=== PATIENT | female | born 1975 | race Caucasian/White ===

== ENCOUNTER 2018-04-20 08:35 | Emergency (ER) | payer OTHER ==
[2018-04-20 08:48] VITALS: BP 160/82; PULSE 119; TEMP 100.2; BMI 22.6
[2018-04-20] MEDS ORDERED: IBUPROFEN 400 MG TABLET (FP) PO ONE ×2 (09:10→09:17)
--- NOTE | 2018-04-20 09:12 | PDOC ---
History of Present Illness - General Chief Complaint: Cold Symptoms Stated Complaint: Cold Symptoms Time Seen by Provider: 04/20/18 08:57 History Source: Patient Exam Limitations: No Limitations - History of Present Illness Initial Comments: 04/20/18 09:47 Came to emergency department for evaluation of worsened cough, fevers, headache , body aches can Tylenol but seems to progressively worse Timing/Duration: reports: just prior to arrival, getting worse Severity: reports: moderate Associated Symptoms: reports: cough, dizziness, earache, fever/chills, headache , muscle aches, nasal congestion Past History - Travel Traveled outside of the country in the last 30 days: No Close contact w/someone who was outside of country & ill: No - Past Medical History Allergies/Adverse Reactions: Allergies Allergy/AdvReac Type Severity Reaction Status Date / Time No Known Allergies Allergy Verified 04/20/18 08:40 Home Medications: Ambulatory Orders Oseltamivir Phosphate [Tamiflu -] 75 mg PO BID #10 capsule 04/20/18 COPD: No - Reproductive History (#): 3 Para: 2 - Immunization History Immunization Up to Date: Yes - Suicide/Smoking/Psychosocial Hx Smoking Status: No Smoking History: Never smoked Have you smoked in the past 12 months: No Number of Cigarettes Smoked Daily: 0 Hx Alcohol Use: No Drug/Substance Use Hx: No Substance Use Type: None Review of Systems - Review of Systems Able to Perform ROS?: Yes Is the patient limited Cook Islander proficient: Yes Constitutional: Yes: Symptoms Reported, See HPI, Chills, Fever, Loss of Appetite , Malaise HEENTM: Yes: Symptoms Reported Respiratory: Yes: Symptoms reported, See HPI, Cough (non productive ), Wheezing Integumentary: Yes: Symptoms Reported, See HPI All Other Systems: Reviewed and Negative *Physical Exam - Vital Signs Last Vital Signs Temp Pulse Resp BP Pulse Ox 100.2 F H 119 H 16 160/82 98 04/20/18 08:40 04/20/18 08:40 04/20/18 08:40 04/20/18 08:40 04/20/18 08:40 - Physical Exam Comments: 04/20/18 09:16 GENERAL: [The child is awake, alert, and appropriately interactive.] EYES: [The pupils are equal, round, and reactive to light, with clear, conjunctiva.but glassy] NOSE: [The nose with clear drainage EARS: [The ear canals and tympanic membranes are congested but landmarks easily visualed ] THROAT: [The oropharynx is clear with erythema, no exudates. The mucous membranes are moist.] NECK: [The neck is supple with mildly tender adenopathy, no menigemous] CHEST: [The lungs are coarse but clear without crackles, or wheezes.] HEART: [Heart is regular rhythm, with normal S1 and S2, no murmurs.] ABDOMEN: [The abdomen is soft and nontender with normal bowel sounds. There is no organomegaly and no mass. There is no guarding or rebound.] EXTREMITIES: [Extremities are normal.] NEURO: [Behavior is normal for age.cranky but easily,m Tone is normal.] SKIN: [Skin is unremarkable without rash or swelling. There is no bruising, and there are no other signs of injury.] Moderate Sedation - Procedure Monitoring Vital Signs: Procedure Monitoring Vital Signs Temperature 100.2 F H 04/20/18 08:40 Pulse Rate 119 H 04/20/18 08:40 Respiratory Rate 16 04/20/18 08:40 Blood Pressure 160/82 04/20/18 08:40 O2 Sat by Pulse Oximetry (%) 98 04/20/18 08:40 Progress Note - Progress Note Progress Note: clinical evidence of influenza *DC/Admit/Observation/Transfer Diagnosis at time of Disposition: Influenzal acute upper respiratory infection - Discharge Dispostion Disposition: HOME Condition at time of disposition: Stable Decision to Admit order: No - Prescriptions Prescriptions: Oseltamivir Phosphate [Tamiflu -] 75 mg PO BID #10 capsule - Referrals Referrals: Oly Driscoll [Primary Care Provider] - - Patient Instructions Printed Discharge Instructions: DI for Viral Upper Respiratory Infection -- Adult Additional Instructions: Rest, drink lots of fluids: Teas, water, soups, Pedialyte Saltwater gargles Steamy showers/seem to face break up mucus Old-fashioned treatments help! Avoid contact with others until fevers and cough resolved as this is very contagious Lots of handwashing and good hygiene Continue [id number] medications for symptomatic relief Tylenol or Motrin for fever and pain Take all of Tamiflu as directed: 1 tab every 12 hours for 5 days Followup with private physician in one to 2 days as needed or if worsening Return to emergency department for worsened symptoms, fevers, dehydration Influenza takes between 5 and 7 days for resolution To not participate in any activity, work, or school until fevers and cough are gone for at least one day - Post Discharge Activity Forms/Work/School Notes: Back to Work
== END 2018-04-20 09:20 | disposition home or self-care (01) ==
LOC: JERFT 08:35
DX: J11.1 Influenza due to unidentified influenza virus with other respiratory manifestations (principal)
CPT/HCPCS: 99281-25

== ENCOUNTER 2018-06-18 17:24 | Emergency (ER) | payer OTHER | END 2018-06-18 23:17 | disposition left against medical advice (07) | LOC: JER 17:24 ==

== ENCOUNTER 2018-06-24 06:38 | Day surgery (SDC) | payer OTHER ==
[2018-06-17 17:42] VITALS: BMI 28.3
[2018-06-24] MEDS ORDERED: ePHEDrine SULFATE 50 MG/1 ML AMPULE ONE (07:05)
[2018-06-24] MEDS ORDERED: MIDAZOLAM HCL 2 MG/2 ML SINGLE DOSE VIAL ONE (07:06)
[2018-06-24] MEDS ORDERED: PROPOFOL 20 ML ONE ×4 (07:06)
[2018-06-24] MEDS ORDERED: SUCCINYLCHOLINE CHLORIDE 200 MG/10 ML VIAL ONE (07:06)
[2018-06-24] MEDS ORDERED: LIDOCAINE HCL 1% PRESERVATIVE FREE - 30ML VIAL ONE (07:17)
[2018-06-24] MEDS ORDERED: DESFLURANE GAS 240 ML BOTTLE IH ONE (07:23)
[2018-06-24] MEDS ORDERED: BUPIVACAINE HCL 0.25% 125 MG/50 ML VIAL ONE (07:32)
[2018-06-24] MEDS ORDERED: ceFAZolin SODIUM 1 GM VIAL ONE (08:20)
[2018-06-24] MEDS ORDERED: KETOROLAC TROMETHAMINE 30 MG/1 ML VIAL ONE (08:20)
[2018-06-24] MEDS ORDERED: DEXAMETHASONE SOD PHOSPHATE 4 MG/1 ML VIAL ONE (08:20)
[2018-06-24] MEDS ORDERED: ONDANSETRON 4 MG/2 ML VIAL ONE (08:20)
[2018-06-24] MEDS ORDERED: BUPIVACAINE HCL/PF 0.25% (2.5MG/ML) 10 ML VIAL IJ ONE (08:59)
--- NOTE | 2018-06-24 09:11 | OPR ---
DATE OF SURGERY: 06/24/18 PROCEDURE: Right open carpal tunnel release. PREOPERATIVE DIAGNOSIS: Right carpal tunnel syndrome. POSTOPERATIVE DIAGNOSIS: Right carpal tunnel syndrome. SURGEON: Heladio Shetty DO FUR PULLER: Samuel Liang DO ANESTHESIA: General IMPLANTS: None. SPECIMEN: None TOURNIQUET TIME: 11 minutes EBL: 1 ml COMPLICATIONS: None INDICATIONS: The patient is a 42 year old female with severe right carpal tunnel syndrome with worsening symptoms, despite conservative treatment. She wished to proceed with the open operative release. We discussed the risks and benefits of the procedure. The risks included but were not limited to infection, wound healing problems, possibility of recurrence, intractable pain, scarring, and further surgery for seen and unforeseen complications and recurrence. Ms Charan Martínez gave written consent to proceed. I marked the correct side preoperatively. SURGEONS NARRATIVE: We brought the patient to the operating room and placed her in a supine position with the right arm abducted to 90 degrees. She underwent successful induction of general anesthesia, and the anesthesia service administered the intravenous antibiotics. We next prepped the right arm with ChloraPrep and draped the arm sterilely. We applied a 18 inch tourniquet around the proximal arm. I placed a oralia in the proximal palm along the ring finger metacarpal axis at the base of the hand and took the oralia ulnarly at the transverse wrist crease. We exsanguinated the right arm, and we raised the tourniquet to 250 mm Hg. We made a 1.5 cm incision and used the bipolar cautery for hemostasis of the small vessels. We next identified the palmaris longus and cut along the ulnar side and then reflected the tendon radially. We identified the palmaris brevis and the transverse carpal ligament. We continued the exposure and then identified the transverse carpal ligament, which then we incised. It was thick and fibrotic and we incised it from the mid palm to the junction with the forearm, using a probe and groove to protect the median nerve at all times. We did additional release distally into the mid palm to divide any residual attached palmar fascia and into the distal aspect of the forearm. Care was taken not to injure the vascular arch in the mid palm. We evaluated the median nerve and noted that it was compressed by the transverse carpal ligament in the mid to distal part of the carpal tunnel with noted swelling proximally. I looked for the recurrent median nerve and found it to branch distally through the radial side of the transverse ligament. There was excellent decompression of the median nerve. With this done, we deflated the tourniquet and saw moderate reperfusion hyperemia in the previously compressed portion of the median nerve. We applied direct pressure and used bipolar cautery for hemostasis. We then irrigated the wound thoroughly. We closed the incision with interrupted 4-0 nylon sutures. I then injected 5 ml's of .25% Marcaine subcutaenously around the incision. We dressed the incision with Xeroform and applied sterile dressings and an DIDI bandage. We left the fingers and thumb free from the MP joints distally. We transferred the patient to the recovery room in a stable and awake condition. I was present for the entire procedure and performed the operation. Samuel Liang was first-anesthesiology physician assistant during the case as there was not a qualified resident salon coordinator available. The patient was given detailed post-operative instructions, and will follow up in my office in 7 -10 days. Heladio Shetty DO
[2018-06-24] MEDS ORDERED: oxyCODONE HCL 5 MG TABLET PO PRN (10:21)
[2018-06-24] MEDS ORDERED: ONDANSETRON 4 MG/2 ML VIAL IVPUSH PRN (10:21)
[2018-06-24] MEDS ORDERED: LACTATED RINGERS SOLUTION 1,000 ML IV SCH (10:30)
[2018-06-24] MEDS ORDERED: oxyCODONE HCL 5 MG TABLET ONE (10:46)
[2018-06-24 14:10] VITALS: TEMP 97.8
[2018-06-24 14:19] VITALS: BP 139/76
[2018-06-24 14:40] VITALS: PULSE 91
== END 2018-06-24 13:35 | disposition home or self-care (01) ==
LOC: FASU 06:38
PROVIDERS: ATTEND Orthopaedic Surgery Sports Medicine
PROC: 01N50ZZ Release Median Nerve, Open Approach (ICD-10-PCS; principal; 2018-06-24 08:00)
DX: G56.01 Carpal tunnel syndrome, right upper limb (principal)
CPT/HCPCS: 84703; 94760

== ENCOUNTER 2019-01-20 20:36 | Emergency (ER) | payer OTHER ==
[2019-01-20 20:41] VITALS: TEMP 98.4; BMI 28.3
--- NOTE | 2019-01-20 20:44 | PDOC ---
Rapid Medical Evaluation Chief Complaint: Diarrhea Time Seen by Provider: 01/20/19 20:38 Medical Evaluation: Allergies Allergy/AdvReac Type Severity Reaction Status Date / Time No Known Allergies Allergy Verified 01/20/19 20:39 01/20/19 20:41 I have performed a brief in-person evaluation of this patient. The patient presents with a chief complaint of: h/o HTN and appendectomy present with complains of diarrhea, cramping suprapubic abd pains and urinary urgency since this AM. Denies N/V, fever or chills. pt report ate salad and smoothy prior to symptoms. no recent travel Pertinent physical exam findings: A&O in NAD I have ordered the following: UA, UCX, UHcg. CBC, CMP The patient will proceed to the ED for further evaluation. Discharge Disposition - Diagnosis Dysuria Diarrhea Qualifiers: Diarrhea type: unspecified type Qualified Code(s): R19.7 - Diarrhea, unspecified - Discharge Dispostion Condition at time of disposition: Stable - Referrals - Patient Instructions - Post Discharge Activity
[2019-01-20 20:59] LABS: BASO % 0.7 % (0-2.0); EOS % 1.4 % (0-4.5); HEMATOCRIT 42.4 % (32.4-45.2); HEMOGLOBIN 14.1 GM/dL (10.7-15.3); LYMPH % 21.6 % (8-40); MCH 30.7 pg (25.7-33.7); MCHC 33.2 g/dl (32.0-36.0); MEAN CELL VOLUME 92.4 fl (80-96); MEAN PLT VOLUME 7.4 fl (7.5-11.1); MONO % 4.3 % (3.8-10.2); PLATELET COUNT 344 K/MM3 (134-434); RBC 4.59 M/mm3 (3.60-5.2); RDW 13.1 % (11.6-15.6); WHITE BLOOD COUNT 15.4 K/mm3 (4.0-10.0)
[2019-01-20 21:04] LABS: EPI CELLS 2.3 /HPF (0-5/HPF); HYALINE CASTS 4 /lpf (0-8); URINE APPEARANCE TURBID; URINE BACTERIA 99.1 /hpf (NEGATIVE); URINE BILIRUBIN NEGATIVE (NEGATIVE); URINE COLOR RED; URINE GLUCOSE (UA) NEGATIVE (NEGATIVE); URINE KETONE NEGATIVE (NEGATIVE); URINE LEUK ESTERASE 3+ (NEGATIVE); URINE NITRITE NEGATIVE (NEGATIVE); URINE PROTEIN 2+ (NEGATIVE); URINE RBC 1768 /hpf (0-4); URINE WBC 385 /hpf (0-5)
[2019-01-20] MEDS ORDERED: SODIUM CHLORIDE 1,000 ML IV STA (21:24)
--- NOTE | 2019-01-20 21:25 | PDOC ---
History of Present Illness - General Chief Complaint: Diarrhea Stated Complaint: FEVER/BODY ACHE Time Seen by Provider: 01/20/19 20:38 History Source: Patient - History of Present Illness Initial Comments: 01/20/19 21:26 43 year old female with diarrhea several episodes today now with dysuria, frequency, b/l flank pain. + nausea, + denies nausea, vomiting, fever/ chills, PMHX: hypertension not on meds, history of UTIs pshx: appendectomy, carpal tunnel surgery 01/20/19 21:30 Past History - Past Medical History Allergies/Adverse Reactions: Allergies Allergy/AdvReac Type Severity Reaction Status Date / Time No Known Allergies Allergy Verified 01/20/19 20:39 Home Medications: Ambulatory Orders Cefdinir [Omnicef -] 300 mg PO BID #20 capsule 01/20/19 Phenazopyridine HCl [Pyridium] 100 mg PO TID #6 tablet 01/20/19 Anemia: No Asthma: No Cancer: No Cardiac Disorders: No CVA: No COPD: No CHF: No Dementia: No Diabetes: No GI Disorders: No Disorders: Yes (diagnosed with kidney stone ?) HTN: Yes Hypercholesterolemia: Yes (many years ago) Liver Disease: No Seizures: No Thyroid Disease: No - Surgical History Abdominal Surgery: No Appendectomy: Yes Cardiac Surgery: No Cholecystectomy: No Lung Surgery: No Neurologic Surgery: No Orthopedic Surgery: No - Reproductive History (#): 3 Para: 2 - Immunization History Immunization Up to Date: Yes - Psycho Social/Smoking Cessation Hx Smoking Status: No Smoking History: Never smoked Have you smoked in the past 12 months: No Number of Cigarettes Smoked Daily: 0 Hx Alcohol Use: No Drug/Substance Use Hx: No Substance Use Type: None Hx Substance Use Treatment: No Review of Systems - Review of Systems Able to Perform ROS?: Yes Is the patient limited Syrian proficient: No Constitutional: Yes: Symptoms Reported, See HPI, Chills, Diaphoresis, Fever, Loss of Appetite, Malaise, Night Sweats, Weakness, Weight Stable, Unintentional Wgt. Loss, Unexplained wgt Loss, Other *Physical Exam - Vital Signs Last Vital Signs Temp Pulse Resp BP Pulse Ox 98.4 F 88 18 155/94 100 01/20/19 20:39 01/20/19 20:39 01/20/19 20:39 01/20/19 20:39 01/20/19 20:39 - Physical Exam General Appearance: Yes: Appropriately Dressed Respiratory/Chest: positive: Lungs Clear, Normal Breath Sounds Cardiovascular: positive: Regular Rhythm, Regular Rate Gastrointestinal/Abdominal: positive: Normal Bowel Sounds, Tender (suprapubic tenderness), Soft Musculoskeletal: positive: Normal Inspection, CVA Tenderness (b/l) Extremity: positive: Normal Capillary Refill, Normal Inspection, Normal Range of Motion Integumentary: positive: Normal Color, Dry, Warm Neurologic: positive: Fully Oriented, Alert, Normal Mood/Affect ED Treatment Course - LABORATORY CBC & Chemistry Diagram: 01/20/19 20:51 01/20/19 20:51 - ADDITIONAL ORDERS Additional order review: Laboratory Results 01/20/19 01/20/19 20:51 20:51 Urine Color Red Urine Appearance Turbid Urine pH 6.0 Ur Specific [place] 1.016 Urine Protein 2+ H Urine Glucose (UA) Negative Urine Ketones Negative Urine Blood 3+ H Urine Nitrite Negative Urine Bilirubin Negative Urine Urobilinogen 1.0 Ur Leukocyte Esterase 3+ H Urine WBC (Auto) 385 Urine RBC (Auto) 1768 Urine Casts (Auto) 4 U Epithel Cells (Auto) 2.3 Urine Bacteria (Auto) 99.1 Urine HCG, Qual Negative 01/20/19 20:51 RBC 4.59 MCV 92.4 MCHC 33.2 RDW 13.1 MPV 7.4 L Neutrophils % 72.0 Lymphocytes % 21.6 Monocytes % 4.3 Eosinophils % 1.4 Basophils % 0.7 ED Progress Note - Progress Note Progress Note: 01/20/19 21:29 A: UTI P: cbc cmp UA Urine culture IVF zofran Discharge - Discharge Information Problems reviewed: Yes Clinical Impression/Diagnosis: Cystitis Diarrhea Qualifiers: Diarrhea type: unspecified type Qualified Code(s): R19.7 - Diarrhea, unspecified Condition: Stable - Additional Discharge Information Prescriptions: Cefdinir [Omnicef -] 300 mg PO BID #20 capsule Phenazopyridine HCl [Pyridium] 100 mg PO TID #6 tablet - Follow up/Referral Referrals: Oly Driscoll [Primary Care Provider] - - Patient Discharge Instructions Patient Printed Discharge Instructions: Urinary Tract Infection Additional Instructions: Drink plenty of fluids Take ibuprofen every 6 hours as needed for pain You may take Pyridium for the burning of urination. it can turn year her urine orange and can make you sweat orange Take cefdinir as prescribed Follow-up with your primary care doctor as soon as possible. You need to repeat urine test once your antibiotic is completed. We will call you if you're antibiotic needs to be changed. - Post Discharge Activity
[2019-01-20 21:28] LABS: ALBUMIN 3.9 g/dl (3.4-5.0); BILIRUBIN,TOTAL 0.3 mg/dL (0.2-1); BLOOD UREA NITROGEN 15.5 mg/dL (7-18); CREATININE 0.7 mg/dL (0.55-1.3); POTASSIUM 4.3 mmol/L (3.5-5.1); TOT PROT 7.6 g/dl (6.4-8.2)
[2019-01-20] MEDS ORDERED: CEFTRIAXONE 1,000 MG in DEXTROSE 5%-WATER - 50 ML IVPB ONE (21:29)
[2019-01-20] MEDS ORDERED: ONDANSETRON 4 MG/2 ML VIAL IVPUSH ONE (21:30)
[2019-01-20] MEDS ORDERED: PHENAZOPYRIDINE HCL 100 MG TABLET (FP) PO ONE (21:31)
[2019-01-20] MEDS ORDERED: ACETAMINOPHEN 325 MG TABLET (FP) PO ONE (21:31)
[2019-01-20] MEDS ORDERED: ACETAMINOPHEN 325 MG TABLET (FP) ONE (21:36)
[2019-01-20] MEDS ORDERED: ONDANSETRON 4 MG/2 ML VIAL ONE ×2 (21:36→21:46)
[2019-01-20] MEDS ORDERED: PHENAZOPYRIDINE HCL 100 MG TABLET (FP) ONE (21:36)
[2019-01-20] MEDS ORDERED: CEFTRIAXONE 1 GM/50 ML BAG ONE (21:37)
[2019-01-20 22:48] VITALS: BP 145/95; PULSE 82
== END 2019-01-20 22:48 | disposition home or self-care (01) ==
LOC: JER 20:36
PROC: 3E03329 Introduction of Other Anti-infective into Peripheral Vein, Percutaneous Approach (ICD-10-PCS; principal; 2019-01-20)
PROC: 3E033GC Introduction of Other Therapeutic Substance into Peripheral Vein, Percutaneous Approach (ICD-10-PCS; 2019-01-20)
DX: N30.00 Acute cystitis without hematuria (principal); R19.7 Diarrhea, unspecified; I10 Essential (primary) hypertension; Z87.442 Personal history of urinary calculi; Z87.440 Personal history of urinary (tract) infections
CPT/HCPCS: 36415; 80053; 81003; 84703; 85025; 87086; 87186; 96365; 96375; 99283-25; J7030

== ENCOUNTER 2019-02-27 00:47 | Emergency (ER) | payer OTHER ==
[2019-02-27] MEDS ORDERED: IBUPROFEN 600 MG TABLET (FP) PO ONE ×2 (02:05→02:13)
[2019-02-27 02:07] VITALS: BP 134/84; PULSE 94; TEMP 98.7; BMI 26.2
--- NOTE | 2019-02-27 02:09 | PDOC ---
History of Present Illness - General Stated Complaint: HEADACHE Time Seen by Provider: 02/27/19 01:52 History Source: Patient Exam Limitations: No Limitations - History of Present Illness Initial Comments: 02/27/19 02:03 43 yo female presents to the ED with 3 days of chills, body aches, BEAR, sore throat, cough with sputum production. Pt states co-worker tested positive for the flu recently, pt has had the flu shot this year. Denies LOC, changes in vision, weakness on 1 side of her body, CP, SOB, abdominal pain, changes in bowel or bladder habits Past History - Past Medical History Allergies/Adverse Reactions: Allergies Allergy/AdvReac Type Severity Reaction Status Date / Time No Known Allergies Allergy Verified 02/27/19 02:07 Home Medications: Ambulatory Orders Cefdinir [Omnicef -] 300 mg PO BID #20 capsule 01/20/19 Phenazopyridine HCl [Pyridium] 100 mg PO TID #6 tablet 01/20/19 Anemia: No Asthma: No Cancer: No Cardiac Disorders: No CVA: No COPD: No CHF: No Dementia: No Diabetes: No GI Disorders: No Disorders: Yes (diagnosed with kidney stone ?) HTN: Yes Hypercholesterolemia: Yes (many years ago) Liver Disease: No Seizures: No Thyroid Disease: No - Surgical History Abdominal Surgery: No Appendectomy: Yes Cardiac Surgery: No Cholecystectomy: No Lung Surgery: No Neurologic Surgery: No Orthopedic Surgery: No - Reproductive History (#): 3 Para: 2 - Immunization History Immunization Up to Date: Yes - Psycho Social/Smoking Cessation Hx Smoking Status: No Smoking History: Never smoked Have you smoked in the past 12 months: No Number of Cigarettes Smoked Daily: 0 Hx Alcohol Use: No Drug/Substance Use Hx: No Substance Use Type: None Hx Substance Use Treatment: No Review of Systems - Review of Systems Constitutional: Yes: Chills, Malaise, Other (body aches). No: Fever HEENTM: No: Blurred Vision, Double Vision Respiratory: Yes: Cough, Productive cough. No: Shortness of Breath Cardiac (ROS): No: Chest Pain, Edema ABD/GI: No: Constipated, Diarrhea, Nausea, Vomiting : No: Burning, Dysuria, Flank Pain, Hematuria Musculoskeletal: No: Back Pain Neurological: Yes: Headache. No: Numbness, Paresthesia, Weakness, Unsteady Gait , Ataxia, Dizziness *Physical Exam - Physical Exam General Appearance: Yes: Nourished, Appropriately Dressed. No: Apparent Distress HEENT: positive: EOMI, EVAN, Sinus Tenderness, Hearing Grossly Normal. negative : Tonsillar Exudate, Rhinorrhea, TM Bulging, TM Dull, TM Erythema, Lesions Neck: positive: Supple. negative: Carotid bruit, Rigidity Respiratory/Chest: positive: Lungs Clear, Normal Breath Sounds. negative: Respiratory Distress, Accessory Muscle Use, Crackles, Rales, Rhonchi, Stridor, Wheezing Cardiovascular: positive: Regular Rhythm, Regular Rate, S1, S2. negative: Edema , JVD, Murmur Vascular Pulses: Dorsalis-Pedis (R): 4+, Doralis-Pedis (L): 4+ Gastrointestinal/Abdominal: positive: Flat, Soft. negative: Pulsatile Mass, Distended, Guarding, Rebound, Tenderness Musculoskeletal: negative: CVA Tenderness Extremity: positive: Normal Capillary Refill, Normal Inspection, Normal Range of Motion Integumentary: positive: Normal Color, Dry, Warm Neurologic: positive: lacing string cutter II-XII NML intact, Fully Oriented, Alert, Normal Mood/ Affect, Normal Response, Motor Strength 5/5. negative: Facial Droop, Numbness, Sensory Deficit, Confused, Disoriented Medical Decision Making - Medical Decision Making 02/27/19 02:08 43 yo female presents to the ED with 3 days of chills, body aches, BEAR, sore throat, cough with sputum production. Pt states co-worker tested positive for the flu recently, pt has had the flu shot this year. Denies LOC, changes in vision, weakness on 1 side of her body, CP, SOB, abdominal pain, changes in bowel or bladder habits vitals WNL Pt presents with URI symptoms See HEENT exam pending strep and influenza test, will give motrin for headaches 02/27/19 03:12 Neg strep and flu pt shows improvement in BEAR after medications pt safe for DC home Discharge - Discharge Information Problems reviewed: Yes Clinical Impression/Diagnosis: URI (upper respiratory infection) Condition: Stable Disposition: HOME - Admission No - Follow up/Referral - Patient Discharge Instructions Patient Printed Discharge Instructions: DI for Viral Upper Respiratory Infection -- Adult Additional Instructions: Please see your Primary Doctor within the next 48 hours. Increase your fluid intake. Take over the counter tylenol or motrin as needed for headaches and fevers. Return to the ER for new or concerning symptoms including but not limited to: inability to eat or drink, high fevers, prolonged symptoms past 1 week. Thank you - Post Discharge Activity
--- NOTE | 2019-02-27 02:13 | PDOC ---
Attending Attestation - Resident Resident Name: Rivas Gould - ED Attending Attestation I have performed the following: I have examined & evaluated the patient, The case was reviewed & discussed with the resident, I agree w/resident's findings & plan - HPI HPI: 02/27/19 03:16 Pt comes with fever and headache. - Physicial Exam PE: 02/27/19 03:17 Normal exam 02/27/19 05:13 HEENT normal; Lungs clear bilaterally No flank pain and no abd pain. Pt is tolerating food (No N/V/D) Pt has no leg swelling afebrile - Medical Decision Making 02/27/19 02:52 Flu negative and strep negative 02/27/19 05:14 Pt reassured. No need for CXR at this time Pt has no SOB or decrease in pulsox value; pt will be discharged home as a viral illness.
== END 2019-02-27 03:38 | disposition home or self-care (01) ==
LOC: JER 00:47
DX: J06.9 Acute upper respiratory infection, unspecified (principal); I10 Essential (primary) hypertension; E78.00 Pure hypercholesterolemia, unspecified; N39.9 Disorder of urinary system, unspecified
CPT/HCPCS: 87070; 87804; 87880; 99281-25

== ENCOUNTER 2019-05-22 12:12 | Emergency (ER) | payer OTHER ==
[2019-05-22] MEDS ORDERED: methylPREDNISolone NA SUCC 125 MG/2 ML VIAL IVPUSH ONE (12:19)
[2019-05-22] MEDS ORDERED: FAMOTIDINE 20 MG/50 ML IVPB 20 MG/50 ML MG IVPB ONE ×2 (12:19→12:56)
[2019-05-22] MEDS ORDERED: SODIUM CHLORIDE 1,000 ML IV STA (12:19)
--- NOTE | 2019-05-22 12:22 | PDOC ---
Rapid Medical Evaluation Time Seen by Provider: 05/22/19 12:19 Medical Evaluation: Allergies Allergy/AdvReac Type Severity Reaction Status Date / Time No Known Allergies Allergy Verified 05/22/19 12:18 05/22/19 12:20 CC: Facial swelling and SOB s/p "allergy shot" PE: Facial swelling. No stridor. Lungs CTAB. Coughing. Orders: Pepcid, Benadryl, Solumedrol, NS- epi deferred at this time Patient will proceed to ED for continued evaluation. Discharge Disposition - Diagnosis Allergic reaction - Referrals - Patient Instructions - Post Discharge Activity
[2019-05-22 12:24] VITALS: TEMP 98.1; BMI 29.2
[2019-05-22] MEDS ORDERED: EPINEPHrine 1:1,000 0.3 MG/0.3 ML SYR IM ONE (12:32)
[2019-05-22] MEDS ORDERED: EPINEPHrine 1:10,000 (P-F SYR) 1 MG/10 ML DISP.SYRIN ONE (12:35)
[2019-05-22] MEDS ORDERED: methylPREDNISolone NA SUCC 125 MG/2 ML VIAL ONE (12:36)
[2019-05-22] MEDS ORDERED: ALBUTEROL SO4 2.5/IPRATROPIUM 0.5 INH SOL 3 ML VIAL.NEB. NEB ONE (12:56)
--- NOTE | 2019-05-22 12:57 | PDOC ---
History of Present Illness - History of Present Illness Initial Comments: 05/22/19 12:39 43 F presenting to ED after facial and eye swelling with associated SOB after an allergy shot a few minutes prior to presentation.S/p epinephrine, patient was more stable and able to provide more info. She explains that she has been receiving allergy shot for the past 2 years. She has had a reaction to her shots before but never that severe. She admits to being allergic to many things including pollen, grass, dustmites, animals ect.. I reached out to her Lockstitch Lining Setter Dr Uribe who explains that patient is instructed to carry her epi-pen at all time and to self administer with any sign of allergic reach so much as itching. PE: Gen: Mod distress HEENT: significant periocular edema w/o tenderness/erythema, facial swelling, throat without erythema with mildly decreased visualization of the oropharynx. Neck: urticaria but supple, no JVD CHEST:. diffuse urticaria on ant and posterior chest, poor air movement, with reduced breath sounds. No wheezing or rales. HEART: tachycardic but regular, no murmur, rubs or gallop Abdomen: +BS, diffuse rash on abdomen, NTND MSK: normal ROM in all joints Extremities: 2+ pulses, no edema neuro: AAOx3, motor strength 5/5 in all muscle groups, sensation intact throughout Psych: anxious appearing Assessment: based on HPI and PE, DDX: anaphylaxis 2/2 allergy shot Plan: solumedrol 125, pepcid 20, benadryl 50, epinephrine 0.3mg IM, duonebs x3 05/22/19 12:57 will order triptase level per resin maker recommendation to help determine level of anaphylaxis as well as level of mast cell dysfunction 05/22/19 13:18 pt's symptoms are improving. will continue to monitor will discharge pt with epi-pen x1 refill and with close f/u with resin maker <Dinorah Redmond - Last Filed: 05/22/19 15:23> <Arin Summers - Last Filed: 05/22/19 15:47> - General Chief Complaint: Allergic Reaction Stated Complaint: ALLERGIC REACTION Time Seen by Provider: 05/22/19 12:19 Past History - Past Medical History Anemia: No Asthma: No Cancer: No Cardiac Disorders: No CVA: No COPD: No CHF: No Dementia: No Diabetes: No GI Disorders: No Disorders: Yes (diagnosed with kidney stone ?) HTN: Yes Hypercholesterolemia: Yes (many years ago) Liver Disease: No Seizures: No Thyroid Disease: No - Surgical History Abdominal Surgery: No Appendectomy: Yes Cardiac Surgery: No Cholecystectomy: No Lung Surgery: No Neurologic Surgery: No Orthopedic Surgery: No - Reproductive History (#): 3 Para: 2 - Immunization History Immunization Up to Date: Yes - Psycho Social/Smoking Cessation Hx Smoking Status: No Smoking History: Unknown if ever smoked Have you smoked in the past 12 months: No Number of Cigarettes Smoked Daily: 0 Hx Alcohol Use: No Drug/Substance Use Hx: No Substance Use Type: None Hx Substance Use Treatment: No <Dinorah Redmond - Last Filed: 05/22/19 15:23> <Arin Summers - Last Filed: 05/22/19 15:47> - Past Medical History Allergies/Adverse Reactions: Allergies Allergy/AdvReac Type Severity Reaction Status Date / Time No Known Allergies Allergy Verified 05/22/19 12:18 Home Medications: Ambulatory Orders Cefdinir [Omnicef -] 300 mg PO BID #20 capsule 01/20/19 Phenazopyridine HCl [Pyridium] 100 mg PO TID #6 tablet 01/20/19 Diphenhydramine [Benadryl -] 50 mg PO Q6H #15 capsule 05/22/19 EPINEPHrine (EPI-PEN 0.3MG) [Epipen 0.3MG -] 0.3 mg IM ASDIR #2 pens 05/22/19 Famotidine [Pepcid] 20 mg PO DAILY #4 tablet 05/22/19 Prednisone [Prednisone 50 MG TABLETS] 50 mg PO DAILY #3 tablet 05/22/19 Review of Systems - Review of Systems Able to Perform ROS?: Yes Is the patient limited Portuguese proficient: No Constitutional: Yes: Weakness. No: Chills, Fever HEENTM: Yes: Tearing, Recent change in vision (perioricular swelling), Difficulty Swallowing Respiratory: Yes: Shortness of Breath, Wheezing ABD/GI: No: Nausea, Vomiting Musculoskeletal: No: Joint Pain, Joint Swelling Integumentary: Yes: Flushing, Pruritus, Rash Neurological: No: Numbness, Tingling, Weakness Psychiatric: No: Change in Appetite Endocrine: Yes: Flushing. No: Change in Weight <RuyDinorah de león - Last Filed: 05/22/19 15:23> *Physical Exam - Vital Signs Last Vital Signs Temp Pulse Resp BP Pulse Ox 98.1 F 102 H 22 H 148/94 100 05/22/19 12:19 05/22/19 12:19 05/22/19 12:19 05/22/19 12:05/22/19 12:19 - Physical Exam General Appearance: Yes: Apparent Distress, Moderate Distress HEENT: positive: Normal Voice Neck: positive: Trachea midline, Supple Respiratory/Chest: positive: Decreased Breath Sounds, Wheezing Cardiovascular: positive: Regular Rhythm, Regular Rate, Tachycardia. negative: JVD, Murmur Gastrointestinal/Abdominal: positive: Normal Bowel Sounds, Flat Rectal Exam: positive: deferred Extremity: positive: Normal Capillary Refill Integumentary: positive: Dry, Warm, Erythema, Hives, Rash Neurologic: positive: email specialist II-XII NML intact, Motor Strength 5/5. negative: Sensory Deficit <RuyDinorah de león - Last Filed: 05/22/19 15:23> - Vital Signs Last Vital Signs Temp Pulse Resp BP Pulse Ox 98.1 F 102 H 22 H 148/94 100 05/22/19 12:19 05/22/19 12:19 05/22/19 12:19 05/22/19 12:19 05/22/19 12:19 <SummersArinsarthak - Last Filed: 05/22/19 15:47> ED Treatment Course - Medications Given in the ED: ED Medications Discontinued Medications Generic Name Dose Route Start Last Admin Trade Name Arnulfo PRN Reason Stop Dose Admin Albuterol/Ipratropium 1 amp 05/22/19 12:45 05/22/19 14:38 Duoneb - NEB 05/22/19 13:16 1 amp Q15M SRIKANTH Administration Diphenhydramine HCl 50 mg 05/22/19 12:19 05/22/19 13:18 Benadryl Injection - IVPUSH 05/22/19 12:20 50 mg ONCE ONE Administration Epinephrine 0.3 mg 05/22/19 12:32 05/22/19 13:19 Epipen 0.3mg - IM 05/22/19 12:33 0.3 mg ONCE ONE Administration Famotidine/Sodium Chloride 20 mg in 50 mls @ 100 mls/hr 05/22/19 12:19 13:18 Pepcid 20 Mg Premixed Ivpb - IVPB 05/22/19 12:48 100 mls/hr ONCE ONE Administration Sodium Chloride 1,000 mls @ 1,000 mls/hr 05/22/19 12:19 05/22/19 13:56 Normal Saline - IV 05/22/19 13:18 1,000 mls/hr ASDIR STA Administration Methylprednisolone Sodium Succinate 125 mg 05/22/19 12:19 05/22/19 13:19 Solu-Medrol - IVPUSH 05/22/19 12:20 125 mg ONCE ONE Administration <Arin Summers - Last Filed: 05/22/19 15:47> Medical Decision Making - Critical Care Time Total Critical Care Time (minutes): 45 (anaphylaxis) Critical Care Statement: The care of this patient involved high complexity decision making to prevent further life threatening deterioration of the patient 's condition and/or to evaluate & treat vital organ system(s) failure or risk of failure. <Arin Summers - Last Filed: 05/22/19 15:47> Discharge - Discharge Information Problems reviewed: Yes - Admission No <Dinorah Redmond - Last Filed: 05/22/19 15:23> <Arin Summers - Last Filed: 05/22/19 15:47> - Discharge Information Clinical Impression/Diagnosis: Anaphylaxis due to allergen immunotherapy Allergic reaction Qualifiers: Encounter type: initial encounter Qualified Code(s): T78.40XA - Allergy, unspecified, initial encounter Condition: Improved Disposition: HOME - Additional Discharge Information Prescriptions: Diphenhydramine [Benadryl -] 50 mg PO Q6H #15 capsule EPINEPHrine (EPI-PEN 0.3MG) [Epipen 0.3MG -] 0.3 mg IM ASDIR #2 pens Famotidine [Pepcid] 20 mg PO DAILY #4 tablet Prednisone [Prednisone 50 MG TABLETS] 50 mg PO DAILY #3 tablet - Follow up/Referral Referrals: Marga Vieira MD [Primary Care Provider] - Scot Uribe MD [Non Staff, Medical] - Call tomorrow - Patient Discharge Instructions Patient Printed Discharge Instructions: DI for Eye Allergic Reaction, DI for Adverse Drug Reaction -- Allergic, Epinephrine Injection Additional Instructions: You came into the ED because you had a severe reaction to your allergy shot today. We gave you Intravenous steroids, benadryl, pepcid, and medications to open up your lungs and your symptoms improved. It is paramount that you carry the appropriate EPI-PEN with you at ALL TIMES. Please see your resin maker within the next few days and reach out to your resin maker tomorrow. [facility] the [facility]: Please take 50mg of prednisone by mouth daily over the next 3 days Please take 20mg of pepcid ( famotidine) by daily over the next 3 days Please take 50mg of benadryl every 6 hours by mouth for the next 3 days I have sent you home with an epipen plus one refill : please inject on the lateral side of your thigh with the blue facing the ahsan. It is important that you follow these instructions. I added discharge instruction for epipen instruction in more detail and in amharic. If you begin to feel like your throat is closing, you are having difficulty breathing, chest tightness, dizziness, diffuse rash, worsening facial swelling/ eye swelling, please return to the Emergency room immediately ------ Llegaste al servicio de urgencias porque tuviste yoel reaccin grave a tu vacuna contra la alergia hoy. Le dimos esteroides intravenosos, benadryl, pepcid y medicamentos para abrir preeti pulmones y preeti sntomas mejoraron. Es primordial que lleve consigo el EPI-PEN apropiado EN TODO MOMENTO. Consulte a alexis alerglogo en los prximos strong y comunquese con alexis alerglogo maana. He enviado los siguientes medicamentos a la farmacia solar: [place] 50 mg de prednisona por va oral diariamente giselle los prximos 3 strong. [place] 20 mg de pepcid (famotidina) por da giselle los prximos 3 strong. [place] 50 mg de benadryl cada 6 horas por va oral giselle los prximos 3 strong. Te he enviado a casa con yoel recarga epipen plus one: inyecte en el lado lateral de alexis muslo con el suzy hacia el clemencia. Es importante que siga estas instrucciones. Agregu instrucciones de descarga para la instruccin epipen con ms detalle y en espaol. Si comienza a sentir que alexis garganta se est cerrando, tiene dificultad para respirar, opresin en el pecho, mareos, erupcin cutnea difusa, empeoramiento de la hinchazn facial / ocular, regrese a la sahil de emergencias de inmediato. Print Language: TELUGU - Post Discharge Activity Work/Back to School Note: Back to Work
[2019-05-22] MEDS: ALBUTEROL SO4 2.5/IPRATROPIUM 0.5 INH SOL 3 ML VIAL.NEB. NEB SCH ×3 (13:19→14:38)
--- NOTE | 2019-05-22 13:37 | PDOC ---
Attending Attestation - Resident Resident Name: Dinorah Redmond - ED Attending Attestation I have performed the following: I have examined & evaluated the patient, The case was reviewed & discussed with the resident, I agree w/resident's findings & plan - HPI HPI: 05/22/19 13:35 43 F presenting to ED after facial and eye swelling with associated SOB after a maintenance allergy shot a few minutes prior to presentation. She explains that she has been receiving allergy shot for the past 2 years with her call center operator, Dr Uribe. She has had a reaction to her shots before but never that severe. She admits to being allergic to many things including pollen , grass, dustmites, animals etc.. I reached out to her Shutdown Planner Dr Uribe who explains that patient is instructed to carry her epi-pen at all time and to self administer with any sign of allergic reach so much as itching. 05/22/19 13:36 05/22/19 15:44 - Physicial Exam PE: 05/22/19 14:22 in moderate distress, tearful, 2/2 discomfort/allergic reaction. NCAT, PERRL, EOMI, +bilateral lid edema, +facial edema, clear conjunctiva, anicteric, moist mucus membranes, oropharynx clear. Airway patent, normal phonation. Uvula midline. no tonsillar hypertrophy. neck supple. lungs bilaterally with diminished breath sounds, +tachycardic, abdomen soft nontender. No rebound, no guarding. Back nontender. HO x4, no focal neuro deficits. No peripheral edema. normal color for ethnicity, WWP. + urticarial rash over chest, back. 05/22/19 14:27 - Critical Care Time Total Critical Care Time: 45 (anaphylaxis) Critical Care Statement: The care of this patient involved high complexity decision making to prevent further life threatening deterioration of the patient 's condition and/or to evaluate & treat vital organ system(s) failure or risk of failure. - Medical Decision Making 05/22/19 13:37 Vital Signs Temp Pulse Resp BP Pulse Ox 98.1 F 102 H 22 H 148/94 100 05/22/19 12:19 05/22/19 12:19 05/22/19 12:19 05/22/19 12:19 05/22/19 12:19 DDx. allergic reaction: hypersensitivity reaction, allergic reaction, anaphylaxis, hives/urticaria. drug rash. dermatitis. serum sickness. vasculitis. medication side effect. -No fevers or systemic findings, clinically with anaphylaxis +mucosal involvement with rash/urticaria, respiratory sx/decreased breath sounds, facial edema immediate epinephrine 0.3mg IM x1, benadryl, pepcid and solumedrol, prednisone for today will reassess so doubt SJS/TEN. airway patent - No evidence of erythema multiforme, SJS/TEN, Lyme, cellulitis, necrotizing fasciitis, no angioedema, meningococcemia, [place] spotted fever. - given meds as above, clinical improvement. VS +tachy, stable, no hypotension. 05/22/19 16:00 stable for discharge, no repeat symptoms, no recurrence VS remain wnl. swelling and facial edema improved. voice normal. airway patent breath sounds clear now, no respiratory distress piotr PO intake, - instructions on avoiding triggers, rx epi pen with refill, directions and use indications reviewed and understood; prednisone x 3 more days, benadryl Q6-8 hr ATC x 3 days, pepcid for dual antihistamine relief. - spoke with her call center operator, Dr Uribe, made aware with the anaphylaxis with the immunotherapy injections. pt has been told to use epi pen, but did not this time. most likely anaphylaxis with specific precautions and instructions provided. d/w pt importance of f/u and pt agrees/understands; told pt to return to nearest ER immediately for any worsening sx incl but not limited to: fever, spreading rash, pain, sore throat, headache, dizziness, chest pain, trouble breathing, or any ssx concerning to the patient. I did d/w pt the aforementioned ddx as possibilities and pt understands to f/u even if better and to return to ER if un-changed/worse. Pt understands these instructions on d/ c and is comfortable with discharge plan. 05/22/19 15:46
[2019-05-22] MEDS ORDERED: predniSONE 20 MG TABLET (UD) PO ONE (15:23)
[2019-05-22] MEDS ORDERED: predniSONE 10 MG TABLET (UD) ONE (15:44)
[2019-05-22] MEDS ORDERED: predniSONE 20 MG TABLET (UD) ONE (15:44)
[2019-05-22 17:35] VITALS: BP 133/74; PULSE 74
[2019-05-23] MEDS ORDERED: predniSONE 20 MG TABLET (UD) PO ONE (15:23)
== END 2019-05-22 16:11 | disposition home or self-care (01) ==
LOC: JER 12:12
PROC: 3E0F7GC Introduction of Other Therapeutic Substance into Respiratory Tract, Via Natural or Artificial Opening (ICD-10-PCS; principal; 2019-05-22)
PROC: 3E0233Z Introduction of Anti-inflammatory into Muscle, Percutaneous Approach (ICD-10-PCS; 2019-05-22)
PROC: 3E0337Z Introduction of Electrolytic and Water Balance Substance into Peripheral Vein, Percutaneous Approach (ICD-10-PCS; 2019-05-22)
PROC: 3E033GC Introduction of Other Therapeutic Substance into Peripheral Vein, Percutaneous Approach (ICD-10-PCS; 2019-05-22)
PROC: 3E0333Z Introduction of Anti-inflammatory into Peripheral Vein, Percutaneous Approach (ICD-10-PCS; 2019-05-22)
DX: T88.6XXA Anaphylactic reaction due to adverse effect of correct drug or medicament properly administered, initial encounter (principal); T78.49XA Other allergy, initial encounter; Y92.89 Other specified places as the place of occurrence of the external cause; X58.XXXA Exposure to other specified factors, initial encounter
CPT/HCPCS: 36415; 83520; 99284-25; J7030

== ENCOUNTER 2021-09-17 17:32 | Emergency (ER) | payer OTHER ==
[2021-09-17 17:39] VITALS: BP 140/80; PULSE 70; TEMP 98.1; BMI 28.3
[2021-09-17] MEDS ORDERED: ASPIRIN 81 MG CHEWABLE TABLETS PO ONE (18:07)
[2021-09-17] MEDS ORDERED: ASPIRIN 81 MG CHEWABLE TABLETS ONE (19:38)
[2021-09-17 20:08] LABS: BASO % 0.5 % (0-2.0); EOS % 1.6 % (0-4.5); HEMATOCRIT 39.3 % (32.4-45.2); HEMOGLOBIN 13.6 GM/dL (10.7-15.3); LYMPH % 34.5 % (8-40); MCH 32.2 pg (25.7-33.7); MCHC 34.6 g/dl (32.0-36.0); MEAN CELL VOLUME 93.1 fl (80-96); MEAN PLT VOLUME 7.1 fl (7.5-11.1); NEUT % 58.4 % (42.8-82.8); PLATELET COUNT 321 10^3/uL (134-434); RBC 4.22 M/mm3 (3.60-5.2); RDW 13.6 % (11.6-15.6); WHITE BLOOD COUNT 12.2 K/mm3 (4.0-10.0)
[2021-09-17 20:14] LABS: INR 0.99 (0.83-1.09); PROTHROMBIN TIME (PATIENT) 11.4 SEC (9.7-13.0)
[2021-09-17 20:16] LABS: ACTIVATED PTT 29.9 SECONDS (25.2-36.5)
[2021-09-17 20:18] LABS: EPI CELLS >36 /uL (0-25.1); HCG,QUALITATIVE URINE Negative; HYALINE CASTS 2 /uL (0-3.1); URINE APPEARANCE CLOUDY; URINE BACTERIA 3137 /uL (0-1359); URINE BILIRUBIN NEGATIVE (NEGATIVE); URINE COLOR YELLOW; URINE GLUCOSE (UA) NEGATIVE (NEGATIVE); URINE KETONE NEGATIVE (NEGATIVE); URINE LEUK ESTERASE 2+ (NEGATIVE); URINE NITRITE NEGATIVE (NEGATIVE); URINE PROTEIN NEGATIVE (NEGATIVE); URINE RBC 10 /uL (0-23.9); URINE UROBILINOGEN 0.2 mg/dL (0.2-1.0); URINE WBC 298 /uL (0-25.8)
[2021-09-17 20:21] LABS: CALCIUM 9.3 mg/dL (8.5-10.1)
[2021-09-17 20:22] LABS: ALBUMIN 3.7 g/dl (3.4-5.0); MAGNESIUM 2.4 mg/dL (1.8-2.4)
[2021-09-17 20:24] LABS: CREATININE 1.1 mg/dL (0.55-1.3)
[2021-09-17 20:26] LABS: BILIRUBIN,TOTAL 0.2 mg/dL (0.2-1); TOT PROT 7.2 g/dl (6.4-8.2)
== END 2021-09-17 20:49 | disposition home or self-care (01) ==
LOC: JER 17:32
DX: R07.89 Other chest pain (principal)
CPT/HCPCS: 36415; 71046-TC-FY; 80053; 81003; 83735; 84484; 84703; 85025; 85610; 85730; 93005; 93010; 99285-25

== ENCOUNTER 2023-07-26 23:28 | Emergency (ER) | payer OTHER ==
[2023-07-26 23:34] VITALS: BP 115/74; PULSE 100; RESP 20; TEMP 99.3; BMI 27.2
[2023-07-27] MEDS ORDERED: IBUPROFEN 600 MG TABLET (FP) PO ONE (00:09)
[2023-07-27] MEDS ORDERED: DEXAMETHASONE SOD PHOSPHATE 10 MG/1 ML VIAL ONE (00:09)
[2023-07-27] MEDS ORDERED: ONDANSETRON *ODT* 4 MG TABLET ONE (00:10)
[2023-07-27] MEDS: ONDANSETRON *ODT* 4 MG TABLET SL ONE (00:11)
[2023-07-27] MEDS: DEXAMETHASONE LIQUID 0.5 MG/5 ML PO ONE (00:31)
[2023-07-27] MEDS: IBUPROFEN 600 MG TABLET (FP) PO ONE (00:31)
[2023-07-27 01:01] LABS: THROAT:GRP A STREP NOT DETECTED (NOTDETECTED)
== END 2023-07-27 01:14 | disposition home or self-care (01) ==
LOC: JER 23:28
DX: R50.9 Fever, unspecified (principal); J06.9 Acute upper respiratory infection, unspecified; Z20.822 Contact with and (suspected) exposure to COVID-19
CPT/HCPCS: 0241U-QW; 87651; 99283-25; Q0162